=== PATIENT | male | born 1945 | race Caucasian/White ===

== ENCOUNTER 2021-02-12 02:05 | Observation (INO) | payer MEDICARE, BC ==
[2021-02-12] MEDS ORDERED: Sodium Chloride 0.9% 500 ML IV SCH (02:14)
[2021-02-12] MEDS ORDERED: Sodium Chloride 0.9% 10 ML Syringe FLUSH PRN (02:32)
--- NOTE | 2021-02-12 02:44 | EDM.PDOC ---
ED HPI GENERAL MEDICAL PROBLEM - General Chief Complaint: Gastrointestinal Problem Stated Complaint: RECTAL PAIN AND BLEEDING Time Seen by Provider: 02/12/21 02:20 Source of Information: Reports: Patient, Family - History of Present Illness INITIAL COMMENTS - FREE TEXT/NARRATIVE: 75 YO WM PRESENTS TO ER ACCOMPANIED BY HIS WITH LOWER ABDOMINAL PAIN AND RECTAL BLEEDING WHICH BEGAN AT 6:30PM LAST NIGHT. STATES HAS BEEN HAVING BRIGHT RED BLOOD PER RECTUM WITH FREQUENCY OF ABOUT EVERY 30 MINUTES SINCE EPISODES HAVE BEGUN. PT WITH PMH OF DEMENTIA AND IS PLEASANTLY CONFUSED. DENIES ANY KNOWN HISTORY OF HEMORRHOIDS, NO HISTORY OF RECTAL BLEEDING, NO DIVERTICULITIS OR COLITIS. PT DENIES FEVER/CHILLS, NO NAUSEA/VOMITING. PT COMPLAINING OF SUPRAPUBIC ABDOMINAL PAIN WITHOUT DYSURIA OR BACK PAIN. STATES BLOOD HAS BEEN MIXED WITH STOOL WITH ASSOCIATED RECTAL PAIN AND LOWER ABDOMINAL PAIN. Onset Date: 02/11/21 Duration: Hour(s): (9) Location: Reports: Abdomen Quality: Reports: Pressure Severity: Moderate Improves with: Reports: Rest Worsens with: Reports: Movement Associated Symptoms: Reports: No Other Symptoms - Related Data Allergies Allergy/AdvReac Type Severity Reaction Status Date / Time naproxen [From Aleve] Allergy Rash Verified 02/12/21 02:13 Home Meds: Home Meds Aspirin [Halfprin] 81 mg PO BRK 07/12/16 [History] Loratadine [Claritin] 10 mg PO DAILY PRN 07/12/16 [History] Omeprazole 40 mg PO DAILY 07/12/16 [History] Rizatriptan Benzoate [Rizatriptan] 1 tab PO ASDIRECTED PRN 07/12/16 [History] Tamsulosin [Flomax] 0.4 mg PO PCBREAKFAST 07/12/16 [History] atorvaSTATin [Lipitor] 20 mg PO BEDTIME 07/12/16 [History] Past Medical History HEENT History: Reports: None Cardiovascular History: Reports: None Respiratory History: Reports: None Genitourinary History: Reports: BPH Musculoskeletal History: Reports: None Neurological History: Reports: Migraines Psychiatric History: Reports: None Endocrine/Metabolic History: Reports: None Hematologic History: Reports: None Immunologic History: Reports: None Oncologic (Cancer) History: Reports: None Dermatologic History: Reports: Other (See Below) Other Dermatologic History: Chronic cysts - Infectious Disease History Infectious Disease History: Reports: None - Past Surgical History GI Surgical History: Reports: Hernia, Inguinal Social & Family History - Caffeine Use Caffeine Use: Reports: Coffee ED ROS GENERAL - Review of Systems Review Of Systems: See Below Constitutional: Reports: Decreased Appetite Respiratory: Reports: No Symptoms Cardiovascular: Reports: No Symptoms GI/Abdominal: Reports: Abdominal Pain, Bloody Stool, Diarrhea : Reports: No Symptoms Musculoskeletal: Reports: No Symptoms Skin: Reports: No Symptoms Neurological: Reports: Confusion Psychiatric: Reports: No Symptoms Hematologic/Lymphatic: Reports: No Symptoms Immunologic: Reports: No Symptoms ED EXAM, GI/ABD - Physical Exam Exam: See Below Exam Limited By: No Limitations General Appearance: Alert, WD/WN, No Apparent Distress Head: Atraumatic, Normocephalic Neck: Normal Inspection, Supple, Non-Tender, Full Range of Motion Respiratory/Chest: No Respiratory Distress, Lungs Clear, Normal Breath Sounds, No Accessory Muscle Use, Chest Non-Tender Cardiovascular: Normal Peripheral Pulses, Regular Rate, Rhythm, No Edema, No Gallop, No JVD, No Murmur, No Rub GI/Abdominal Exam: Normal Bowel Sounds, Soft, No Organomegaly, No Distention, No Abnormal Bruit, No Mass, Pelvis Stable, Tender (SUPRAPUBIC ABDOMINAL PAIN) Back Exam: Normal Inspection, Full Range of Motion, NT Extremities: Normal Inspection, Normal Range of Motion, Non-Tender, Normal Capillary Refill, No Pedal Edema Neurological: Alert, CN II-XII Intact, Normal Gait, No Motor/Sensory Deficits Psychiatric: Normal Affect, Normal Mood Skin Exam: Warm, Dry, Intact, Normal Color, No Rash Lymphatic: No Adenopathy Course - Orders/Labs/Meds Orders: Active Orders 24 hr Category Date Time Status Cardiac Monitoring [RC] . DIRECTED Care 02/12/21 02:47 Active Peripheral IV Care [RC] . DIRECTED Care 02/12/21 02:32 Active Abdomen Pelvis w Cont [CT] Stat Exams 02/12/21 02:32 Ordered COMPREHENSIVE METABOLIC PN,CMP [CHEM] Stat Lab 02/12/21 02:22 Received CORONAVIRUS COVID-19 RAPID [MOLEC] Stat Lab 02/12/21 04:04 Ordered LIPASE [CHEM] Stat Lab 02/12/21 02:22 Received TYPE AND SCREEN [BBK] Stat Lab 02/12/21 02:22 Received Sodium Chloride 0.9% [Normal Saline] 50 ml Med 02/12/21 03:15 Active IV ASDIRECTED Sodium Chloride 0.9% [Normal Saline] 500 ml Med 02/12/21 02:14 Active IV .BOLUS Sodium Chloride 0.9% [Saline Flush] Med 02/12/21 02:32 Active 10 ml FLUSH Q8HR PRN Peripheral IV Insertion Adult [OM.PC] Routine Oth 02/12/21 02:32 Ordered Medication Orders Sodium Chloride (Normal Saline) 500 mls @ 999 mls/hr IV .BOLUS MILES Last Admin: 02/12/21 02:35 Dose: 999 mls/hr Documented by: PRATIK Sodium Chloride (Normal Saline) 50 mls @ 200 mls/min IV ASDIRECTED MILES Sodium Chloride (Sodium Chloride 0.9% 10 Ml Syringe) 10 ml FLUSH Q8HR PRN PRN Reason: keep vein open Last Admin: 02/12/21 02:22 Dose: 10 ml Documented by: PRATIK Labs: Laboratory Tests 02/12/21 02/12/21 Range/Units 02:22 03:22 WBC 12.34 H (5.00-10.00) 10^3/uL RBC 4.80 (4.50-6.00) 10^6/uL Hgb 15.5 (13.0-17.0) g/dL Hct 46.4 (40.0-52.0) % MCV 96.7 H (82.0-92.0) fL MCH 32.3 H (27.0-31.0) pg MCHC 33.4 (32.0-36.0) g/dL RDW 12.5 (11.5-14.5) % Plt Count 154 (150-400) 10^3/uL MPV 9.5 (7.4-10.4) fL Immature Gran % (Auto) 0.1 (0.0-5.0) % Neut % (Auto) 87.2 H (50.0-70.0) % Lymph % (Auto) 6.2 L (20.0-40.0) % [place] % (Auto) 6.2 (2.0-8.0) % Eos % (Auto) 0.1 L (1.0-3.0) % Baso % (Auto) 0.2 (0.0-1.0) % Neut # (Auto) 10.78 H (2.50-7.00) 10^3/uL Lymph # (Auto) 0.76 L (1.00-4.00) 10^3/uL [place] # (Auto) 0.76 (0.10-0.80) 10^3/uL Eos # (Auto) 0.01 L (0.10-0.30) 10^3/uL Baso # (Auto) 0.02 (0.00-0.10) 10^3/uL Immature Gran # (Auto) 0.01 (0.00-0.50) 10^3/uL Specimen Type Urinvoid Urine Color Yellow (YELLOW) Urine Appearance Slightly cloudy H (CLEAR) Urine pH 5.5 (5.0-9.0) Ur Specific [place] 1.025 (1.005-1.030) Urine Protein Negative (NEGATIVE) mg/dL Urine Glucose (UA) Negative (NEGATIVE) mg/dL Urine Ketones 40 H (NEGATIVE) mg/dL Urine Occult Blood Large H (NEGATIVE) Urine Nitrite Negative (NEGATIVE) Urine Bilirubin Small H (NEGATIVE) Urine Urobilinogen 2.0 H (0.2-1.0) E.U./dL Ur Leukocyte Esterase Negative (NEGATIVE) Urine RBC 75-100 H (0-5) /HPF Urine WBC 0-5 (0-5) /HPF Ur Epithelial Cells Occasional /LPF Urine Bacteria Few (NONE TO FEW) /HPF Meds: Medications Generic Name Dose Route Start Last Admin Trade Name Freq PRN Reason Stop Dose Admin Sodium Chloride 500 mls @ 999 mls/hr 02/12/21 02:14 02/12/21 02:35 Normal Saline IV 999 mls/hr .BOLUS MILES Administration Sodium Chloride 50 mls @ 200 mls/min 02/12/21 03:15 Normal Saline IV ASDIRECTED MILES Sodium Chloride 10 ml 02/12/21 02:32 02/12/21 02:22 Sodium Chloride 0.9% 10 Ml Syringe FLUSH 10 ml Q8HR PRN Administration keep vein open Discontinued Medications Generic Name Dose Route Start Last Admin Trade Name Freq PRN Reason Stop Dose Admin Iopamidol 75 ml 02/12/21 03:06 Iopamidol 755 Mg/Ml 75 Ml Bottle IVPUSH 02/12/21 03:07 ONETIME ONE - Radiology Interpretation Free Text/Narrative:: CT ABD/PELVIS- DISTENDED STOOL FILLED RECTUM WITH WALL THICKENING AND INFLAMMATION CONSISTENT WITH STERCORAL PROCTITIS - Re-Assessments/Exams Free Text/Narrative Re-Assessment/Exam: 02/12/21 03:34 CMP NA-140 K-4.1 CL-103 BUN-15 CR-0.84 GLUCOSE-126 GFR>60 ALK PHOS-59 ALT-26 AST-17 Free Text/Narrative Re-Assessment/Exam: 02/12/21 04:50 PT RESTING COMFORTABLY AND IN NAD. DISCUSSED FINDINGS WITH FAMILY WHO FELT COMFORTABLE WITH MANAGEMENT AND HOSPITALIZATION Departure - Departure Time of Disposition: 04:50 Disposition: Refer to Observation Condition: Fair Clinical Impression: Stercoral colitis - Discharge Information Referrals: Lena Noe MD [Primary Care Provider] - - My Orders Last 24 Hours: My Active Orders 02/12/21 02:14 Sodium Chloride 0.9% [Normal Saline] 500 ml IV .BOLUS 02/12/21 02:22 COMPREHENSIVE METABOLIC PN,CMP [CHEM] Stat LIPASE [CHEM] Stat TYPE AND SCREEN [BBK] Stat 02/12/21 02:32 Peripheral IV Care [RC] . DIRECTED Abdomen Pelvis w Cont [CT] Stat Sodium Chloride 0.9% [Saline Flush] 10 ml FLUSH Q8HR PRN Peripheral IV Insertion Adult [OM.PC] Routine 02/12/21 02:47 Cardiac Monitoring [RC] . DIRECTED 02/12/21 03:15 Sodium Chloride 0.9% [Normal Saline] 50 ml IV ASDIRECTED 02/12/21 04:04 CORONAVIRUS COVID-19 RAPID [MOLEC] Stat - Assessment/Plan Last 24 Hours: My Active Orders 02/12/21 02:14 Sodium Chloride 0.9% [Normal Saline] 500 ml IV .BOLUS 02/12/21 02:22 COMPREHENSIVE METABOLIC PN,CMP [CHEM] Stat LIPASE [CHEM] Stat TYPE AND SCREEN [BBK] Stat 02/12/21 02:32 Peripheral IV Care [RC] . DIRECTED Abdomen Pelvis w Cont [CT] Stat Sodium Chloride 0.9% [Saline Flush] 10 ml FLUSH Q8HR PRN Peripheral IV Insertion Adult [OM.PC] Routine 02/12/21 02:47 Cardiac Monitoring [RC] . DIRECTED 02/12/21 03:15 Sodium Chloride 0.9% [Normal Saline] 50 ml IV ASDIRECTED 02/12/21 04:04 CORONAVIRUS COVID-19 RAPID [MOLEC] Stat Assessment:: 1. RECTAL BLEEDING 2. STERCORAL PROCTITIS Plan: 1. ADMIT TO MEDICINE- DR STUART @[id number] 2. REPEAT H/H 3. STOOL SOFTENERS 4. SOLUMEDROL 80MG IV Q8 5. SUPPORTIVE CARE
[2021-02-12 03:01] LABS: ANION GAP 14.9 mmol/L (5-15); CHLORIDE,CL 103 mmol/L (98-107); SODIUM,NA 140 mmol/L (136-145)
[2021-02-12] MEDS ORDERED: Iopamidol 755 Mg/ML 75 ML Bottle IVPUSH ONE (03:06)
[2021-02-12] MEDS ORDERED: Sodium Chloride 0.9% 50 ML IV SCH (03:15)
[2021-02-12] MEDS ORDERED: Docusate Sodium 100 MG Cap PO PRN (04:53)
[2021-02-12] MEDS ORDERED: Bisacodyl 5 MG Tab PO PRN (04:53)
[2021-02-12] MEDS ORDERED: methylPREDNISolone Sodium Succinate 125 MG/2 ML SDV IVPUSH SCH (05:00)
--- NOTE | 2021-02-12 08:26 | CT ---
[id number] CT/CT Abdomen Pelvis W IV EXAM: CT Abdomen Pelvis W IV CLINICAL DATA: PAIN COMPARISON STUDY: None. FINDINGS: Dependent atelectasis at the lung bases bilaterally. Coronary artery disease. The liver, spleen, gallbladder, pancreas and adrenal glands are unremarkable. Punctate nonobstructing bilateral renal calculi. No hydronephrosis or hydroureter. Bilateral renal cortical cysts. Large amount of retained stool within the colon. There is thickening and inflammatory change involving the rectum. No lymphadenopathy, free fluid, or pneumoperitoneum. The prostate is enlarged. Scattered changes of spondylosis the spine. No fracture or osseous lesion. IMPRESSION: 1. Large amount of retained stool within the colon. Thickening inflammatory change involving the rectum consistent with uncomplicated proctitis. Xavier David DO 02/12/21 0871 Thank you for allowing us to participate in the care of your patient.
[2021-02-12 11:46] VITALS: BP 124/73; PULSE 73
--- NOTE | 2021-02-12 13:05 | PCM.DCSUM1 ---
Discharge Summary - Hospital Course Free Text/Narrative:: Admission Date: 02/12/2021 Discharge Date: 02/12/2021 Admission Diagnosis: Acute uncomplicated proctitis with rectal bleeding Discharge Diagnosis: Acute uncomplicated proctitis with rectal bleeding, improving - Prednisone 60 mg PO daily x 5 days (sent to pharmacy through his clinic chart) - Follow-up in 5 days if bleeding persists, sooner if there is worsening blood in the stool Secondary Diagnosis: Dementia - Donepezil 10 mg PO daily BPH - Tamsulosin 0.4 mg PO daily - Finasteride 5 mg PO daily New Meds at Discharge: Prednisone 60 mg PO daily x 5 days CODE STATUS: DNR/DNI, treat reversible conditions. POLST signed. Hospital Course: Theo was admitted early this morning with a several hour history of blood in the stool and lower abdominal pain. He also had some urinary retention and was scanned for 600 mL of urine via bladder scan and was unable to empty his bladder and so he was catheterized and has been able to urinate on his own. CT scan was done and showed acute uncomplicated proctitis. He was treated with Solumedrol 80 mg IV q 8 hours. He has had improvement in his pain, currently no pain at discharge. Initial hemoglobin was 15.5 and recheck was 15.2. He has not had any episodes of bloody stool since his admission and the patient and his family desire him to be treated at home. He will be discharged with prednisone 60 mg PO daily x 5 days to start on 02/13. If bleeding worsens he is to follow-up in ER or clinic. If improving but still mild blood in the stool after 5 days of steroids will do a longer taper over 2-3 weeks. No personal or fam hx of inflammatory bowel disease. Modified [place]ck[place]la Scale: No Signif.Disability Despite Sympt.Able to Carry Out Usual Act./Duties Modified [place] Scale Score: 1 - Discharge Data Discharge Date: 02/12/21 Discharge Disposition: Home, Self-Care 01 Condition: Good - Referral to Home Health Primary Care Physician: Lena Noe MD - Discharge Plan *PRESCRIPTION DRUG MONITORING PROGRAM REVIEWED*: Not Applicable *COPY OF PRESCRIPTION DRUG MONITORING REPORT IN PATIENT MILVIA: Not Applicable Home Medications: Home Meds Aspirin [Halfprin] 81 mg PO BRK 07/12/16 [History] Loratadine [Claritin] 10 mg PO DAILY PRN 07/12/16 [History] Rizatriptan Benzoate [Rizatriptan] 1 tab PO ASDIRECTED PRN 07/12/16 [History] Tamsulosin [Flomax] 0.4 mg PO PCBREAKFAST 07/12/16 [History] Diclofenac Sodium [Voltaren 1% Gel] 1 applic TOP QID PRN 02/12/21 [History] Donepezil HCl 10 mg PO DAILY 02/12/21 [History] Finasteride 5 mg PO DAILY 02/12/21 [History] Ibuprofen [Motrin] 400 mg PO BIDMEALS 02/12/21 [History] Referrals: Lena Noe MD [Primary Care Provider] - - Discharge Summary/Plan Comment DC Time >30 min.: No Total # of Minutes for Discharge Time: 20 - General Info Date of Service: 02/12/21 Admission Dx/Problem (Free Text: Acute proctitis - Patient Data Vitals - Most Recent: Last Vital Signs Temp 98 F 02/12/21 11:00 Pulse 73 02/12/21 11:00 Resp 16 02/12/21 11:00 BP 124/73 02/12/21 11:00 Pulse Ox 98 02/12/21 11:00 Weight - Most Recent: 175 lb 6 oz I&O - Last 24 hours: Intake & Output 02/11/21 02/12/21 02/12/21 22:59 06:59 14:59 Intake Total 500 Output Total 1100 Balance -600 Lab Results - Last 24 hrs: Laboratory Results - last 24 hr 02/12/21 02/12/21 02/12/21 Range/Units 02:22 02:22 02:22 WBC 12.34 H (5.00-10.00) 10^3/uL RBC 4.80 (4.50-6.00) 10^6/uL Hgb 15.5 (13.0-17.0) g/dL Hct 46.4 (40.0-52.0) % MCV 96.7 H (82.0-92.0) fL MCH 32.3 H (27.0-31.0) pg MCHC 33.4 (32.0-36.0) g/dL RDW 12.5 (11.5-14.5) % Plt Count 154 (150-400) 10^3/uL MPV 9.5 (7.4-10.4) fL Immature Gran % (Auto) 0.1 (0.0-5.0) % Neut % (Auto) 87.2 H (50.0-70.0) % Lymph % (Auto) 6.2 L (20.0-40.0) % [place] % (Auto) 6.2 (2.0-8.0) % Eos % (Auto) 0.1 L (1.0-3.0) % Baso % (Auto) 0.2 (0.0-1.0) % Neut # (Auto) 10.78 H (2.50-7.00) 10^3/uL Lymph # (Auto) 0.76 L (1.00-4.00) 10^3/uL [place] # (Auto) 0.76 (0.10-0.80) 10^3/uL Eos # (Auto) 0.01 L (0.10-0.30) 10^3/uL Baso # (Auto) 0.02 (0.00-0.10) 10^3/uL Immature Gran # (Auto) 0.01 (0.00-0.50) 10^3/uL Add Manual Diff Neutrophils % (Manual) (50-70) % Band Neutrophils % (4-12) % Lymphocytes % (Manual) (20-40) % Atypical Lymphs % Monocytes % (Manual) (2-8) % Eosinophils % (Manual) (1-3) % Basophils % (Manual) (0-1) % Platelet Estimate Sodium 140 (136-145) mmol/L Potassium 4.1 (3.5-5.1) mmol/L Chloride 103 (98-107) mmol/L Carbon Dioxide 26.2 (21.0-32.0) mmol/L Anion Gap 14.9 (5-15) mmol/L BUN 15 (7-18) mg/dL Creatinine 0.84 (0.51-1.17) mg/dL Est Cr Clr Drug Dosing TNP Estimated GFR (MDRD) > 60 mL/min Glucose 126 (70-140) mg/dL Calcium 8.6 L (8.7-10.3) mg/dL Total Bilirubin 1.0 (0.2-1.0) mg/dL AST 17 (15-37) U/L ALT 26 (14-63) U/L Alkaline Phosphatase 59 (46-116) U/L Total Protein 6.8 (6.4-8.2) g/dL Albumin 3.87 (3.40-5.00) g/dL Lipase 66 L (73-393) U/L Specimen Type Urine Color (YELLOW) Urine Appearance (CLEAR) Urine pH (5.0-9.0) Ur Specific [place] (1.005-1.030) Urine Protein (NEGATIVE) mg/dL Urine Glucose (UA) (NEGATIVE) mg/dL Urine Ketones (NEGATIVE) mg/dL Urine Occult Blood (NEGATIVE) Urine Nitrite (NEGATIVE) Urine Bilirubin (NEGATIVE) Urine Urobilinogen (0.2-1.0) E.U./dL Ur Leukocyte Esterase (NEGATIVE) Urine RBC (0-5) /HPF Urine WBC (0-5) /HPF Ur Epithelial Cells /LPF Urine Bacteria (NONE TO FEW) /HPF SARS CoV-2 RNA Rapid REDDY (NEGATIVE) Blood Type O POSITIVE Gel Antibody Screen Negative 02/12/21 02/12/21 02/12/21 Range/Units 03:22 04:05 09:10 WBC 13.61 H (5.00-10.00) 10^3/uL RBC 4.70 (4.50-6.00) 10^6/uL Hgb 15.2 (13.0-17.0) g/dL Hct 45.7 (40.0-52.0) % MCV 97.2 H (82.0-92.0) fL MCH 32.3 H (27.0-31.0) pg MCHC 33.3 (32.0-36.0) g/dL RDW 12.5 (11.5-14.5) % Plt Count 139 L (150-400) 10^3/uL MPV 10.3 (7.4-10.4) fL Immature Gran % (Auto) (0.0-5.0) % Neut % (Auto) (50.0-70.0) % Lymph % (Auto) (20.0-40.0) % [place] % (Auto) (2.0-8.0) % Eos % (Auto) (1.0-3.0) % Baso % (Auto) (0.0-1.0) % Neut # (Auto) (2.50-7.00) 10^3/uL Lymph # (Auto) (1.00-4.00) 10^3/uL [place] # (Auto) (0.10-0.80) 10^3/uL Eos # (Auto) (0.10-0.30) 10^3/uL Baso # (Auto) (0.00-0.10) 10^3/uL Immature Gran # (Auto) (0.00-0.50) 10^3/uL Add Manual Diff Yes Neutrophils % (Manual) 93 H (50-70) % Band Neutrophils % 1 L (4-12) % Lymphocytes % (Manual) 5 L (20-40) % Atypical Lymphs % 0 Monocytes % (Manual) 1 L (2-8) % Eosinophils % (Manual) 0 L (1-3) % Basophils % (Manual) 0 (0-1) % Platelet Estimate Decreased Sodium (136-145) mmol/L Potassium (3.5-5.1) mmol/L Chloride (98-107) mmol/L Carbon Dioxide (21.0-32.0) mmol/L Anion Gap (5-15) mmol/L BUN (7-18) mg/dL Creatinine (0.51-1.17) mg/dL Est Cr Clr Drug Dosing Estimated GFR (MDRD) mL/min Glucose (70-140) mg/dL Calcium (8.7-10.3) mg/dL Total Bilirubin (0.2-1.0) mg/dL AST (15-37) U/L ALT (14-63) U/L Alkaline Phosphatase (46-116) U/L Total Protein (6.4-8.2) g/dL Albumin (3.40-5.00) g/dL Lipase (73-393) U/L Specimen Type Urinvoid Urine Color Yellow (YELLOW) Urine Appearance Slightly cloudy H (CLEAR) Urine pH 5.5 (5.0-9.0) Ur Specific [place] 1.025 (1.005-1.030) Urine Protein Negative (NEGATIVE) mg/dL Urine Glucose (UA) Negative (NEGATIVE) mg/dL Urine Ketones 40 H (NEGATIVE) mg/dL Urine Occult Blood Large H (NEGATIVE) Urine Nitrite Negative (NEGATIVE) Urine Bilirubin Small H (NEGATIVE) Urine Urobilinogen 2.0 H (0.2-1.0) E.U./dL Ur Leukocyte Esterase Negative (NEGATIVE) Urine RBC 75-100 H (0-5) /HPF Urine WBC 0-5 (0-5) /HPF Ur Epithelial Cells Occasional /LPF Urine Bacteria Few (NONE TO FEW) /HPF SARS CoV-2 RNA Rapid REDDY Negative (NEGATIVE) Blood Type Gel Antibody Screen Med Orders - Current: Current Medications Bisacodyl (Bisacodyl 5 Mg Tab) 5 mg PO DAILY PRN PRN Reason: Constipation Docusate Sodium (Docusate Sodium 100 Mg Cap) 100 mg PO BID PRN PRN Reason: Constipation Methylprednisolone Sodium Succinate (Methylprednisolone Sodium Succinate 125 Mg/2 Ml Sdv) 80 mg IVPUSH Q8H [facility] Last Admin: 02/12/21 06:04 Dose: 80 mg Documented by: Discontinued Medications Sodium Chloride (Normal Saline) 500 mls @ 999 mls/hr IV .BOLUS [facility] Last Admin: 02/12/21 02:35 Dose: 999 mls/hr Documented by: Sodium Chloride (Normal Saline) 50 mls @ 200 mls/min IV ASDIRECTED [facility] Iopamidol (Iopamidol 755 Mg/Ml 75 Ml Bottle) 75 ml IVPUSH ONETIME ONE Stop: 02/12/21 03:07 Sodium Chloride (Sodium Chloride 0.9% 10 Ml Syringe) 10 ml FLUSH Q8HR PRN PRN Reason: keep vein open Last Admin: 02/12/21 02:22 Dose: 10 ml Documented by: - Exam General: Reports: Alert, Cooperative, No Acute Distress Lungs: Reports: Clear to Auscultation, Normal Respiratory Effort Cardiovascular: Reports: Regular Rate, Regular Rhythm, No Murmurs GI/Abdominal Exam: Normal Bowel Sounds, Soft, Non-Tender Extremities: No Pedal Edema
== END 2021-02-12 13:53 | disposition home or self-care (01) ==
LOC: KA.ED 02:05 → KA.MS 04:53 → UNDOADMOB 05:24 → KA.MS 05:24
PROVIDERS: ADMIT Physician Assistant Medical; ATTEND Internal Medicine
DX: K62.89 Other specified diseases of anus and rectum (principal); K62.5 Hemorrhage of anus and rectum; R33.9 Retention of urine, unspecified; Z88.8 Allergy status to other drugs, medicaments and biological substances; Z79.82 Long term (current) use of aspirin; Z79.899 Other long term (current) drug therapy; Z98.890 Other specified postprocedural states; Z20.822 Contact with and (suspected) exposure to COVID-19
CPT/HCPCS: 36415; 74177; 80053; 81001; 83690; 85025; 86850; 86900; 86901; 96374; 99236; 99285-25; G0378; J2930; J7040; Q9967; U0002

== ENCOUNTER 2022-11-15 11:20 | Emergency (ER) | payer MEDICARE, BC ==
[2022-11-15 12:10] LABS: BASOPHILS ABSOLUTE AUTO 0.02 10^3/uL (0.00-0.10); BASOPHILS PERCENT AUTO 0.2 % (0.0-1.0); EOSINOPHILS ABSOLUTE AUTO 0.06 10^3/uL (0.10-0.30); EOSINOPHILS PERCENT AUTO 0.7 % (1.0-3.0); HEMATOCRIT 41.4 % (40.0-52.0); HEMOGLOBIN 13.4 g/dL (13.0-17.0); IMMATURE GRAN ABSOLUTE AUTO 0.01 10^3/uL (0.00-0.50); IMMATURE GRAN PERCENT AUTO 0.1 % (0.0-5.0); LYMPHOCYTES ABSOLUTE AUTO 0.69 10^3/uL (1.00-4.00); LYMPHOCYTES PERCENT AUTO 8.3 % (20.0-40.0); MEAN CORPUSCULAR HEMOGLOBIN 31.7 pg (27.0-31.0); MEAN CORPUSCULAR HGB CONC 32.4 g/dL (32.0-36.0); MEAN CORPUSCULAR VOLUME 97.9 fL (82.0-92.0); MEAN PLATELET VOLUME 9.5 fL (7.4-10.4); MONOCYTES ABSOLUTE AUTO 0.59 10^3/uL (0.10-0.80); MONOCYTES PERCENT AUTO 7.1 % (2.0-8.0); NEUTROPHILS ABSOLUTE AUTO 6.93 10^3/uL (2.50-7.00); NEUTROPHILS PERCENT AUTO 83.6 % (50.0-70.0); PLATELET COUNT,PLT 177 10^3/uL (150-400); RED BLOOD CELL COUNT 4.23 10^6/uL (4.50-6.00)
[2022-11-15 12:25] LABS: ALBUMIN 3.88 g/dL (3.40-5.00); ANION GAP 15.6 mmol/L (5-15); BILIRUBIN TOTAL 1.9 mg/dL (0.2-1.0); CALCIUM 9.3 mg/dL (8.7-10.3); CARBON DIOXIDE,CO2 27.3 mmol/L (21.0-32.0); CREATININE 3.9 mg/dL (0.51-1.17); EST CRCL DRUG DOSING (CG) 14.32 mL/min; POTASSIUM,K 4.9 mmol/L (3.5-5.1); PROTEIN TOTAL,TP 7.2 g/dL (6.4-8.2)
[2022-11-15] MEDS: Iopamidol 755 Mg/ML 100 ML Bottle IV ONE (12:33)
[2022-11-15] MEDS: Sodium Chloride 0.9% 50 ML IV SCH (12:33)
[2022-11-15 12:42] LABS: APPEARANCE,URINE CLEAR (CLEAR); BILIRUBIN,URINE SMALL (NEGATIVE); COLOR,URINE DARK YELLOW (YELLOW); GLUCOSE,URINE NEGATIVE (NEGATIVE); KETONES,URINE NEGATIVE (NEGATIVE); LEUKOCYTE ESTERASE,URINE NEGATIVE (NEGATIVE); NITRITE,URINE NEGATIVE (NEGATIVE); OCCULT BLOOD,URINE NEGATIVE (NEGATIVE); PH,URINE 6.5 (5.0-9.0); PROTEIN,URINE TRACE mg/dL (NEGATIVE)
[2022-11-15] MEDS: Sodium Chloride 0.9% 1,000 ML IV ONE (12:50)
[2022-11-15 12:53] LABS: BACTERIA,URINE OCCASIONAL /HPF (NONE TO FEW); EPITHELIAL CELLS,URINE RARE /LPF; MUCUS,URINE FEW /LPF (NEGATIVE); WBC,URINE 0-5 /HPF (0-5)
[2022-11-15 18:38] VITALS: BP 125/82; PULSE 110
== END 2022-11-15 15:30 ==
LOC: KA.ED 11:20
DX: G31.83 Neurocognitive disorder with Lewy bodies (principal); E86.0 Dehydration; N40.1 Benign prostatic hyperplasia with lower urinary tract symptoms; R33.8 Other retention of urine; R74.8 Abnormal levels of other serum enzymes; Z88.6 Allergy status to analgesic agent; Z79.82 Long term (current) use of aspirin; Z79.899 Other long term (current) drug therapy
CPT/HCPCS: 36415; 51702; 73560-RT; 74018; 80053; 81001; 85025; 96360; 99284; 99284-25; J3490; J7030; Q9967

== ENCOUNTER 2024-03-01 17:45 | Emergency (ER) | payer MEDICARE, BC ==
[2024-03-01] MEDS: Lidocaine 1% 20 ML MDV ONE (18:05)
[2024-03-02 10:52] VITALS: BP 120/67; PULSE 74
== END 2024-03-01 19:54 ==
LOC: KA.ED 17:45
DX: S02.40EA Zygomatic fracture, right side, initial encounter for closed fracture (principal); S02.40CA Maxillary fracture, right side, initial encounter for closed fracture; S02.85XA Fracture of orbit, unspecified, initial encounter for closed fracture; S01.112A Laceration without foreign body of left eyelid and periocular area, initial encounter; Z79.82 Long term (current) use of aspirin; Z79.899 Other long term (current) drug therapy; Z88.8 Allergy status to other drugs, medicaments and biological substances; Z91.011 Allergy to milk products; W01.198A Fall on same level from slipping, tripping and stumbling with subsequent striking against other object, initial encounter; Y93.01 Activity, walking, marching and hiking; Y92.129 Unspecified place in nursing home as the place of occurrence of the external cause
CPT/HCPCS: 12013; 70450; 72125; 99284; J3490